=== PATIENT | male | born 2000 ===

== ENCOUNTER 2021-03-18 12:13 | Emergency (ER) | payer MEDICAID, OTHER ==
[~2021-03-18] VITALS: Ht 180.3 cm; Wt 72.6 kg
[2021-03-18] MEDS ORDERED: ONDANSETRON ODT 4 MG TAB PO ONE (14:30)
[2021-03-18] MEDS ORDERED: ACETAMINOPHEN/CODEINE#3 (300/30mg) TAB PO ONE (14:30)
[2021-03-18 16:19] VITALS: BP 138/80
== END 2021-03-18 16:20 | disposition home or self-care (01) ==
LOC: ER 12:13
DX: S82.431A Displaced oblique fracture of shaft of right fibula, initial encounter for closed fracture (principal); S80.211A Abrasion, right knee, initial encounter; M54.2 Cervicalgia; R51.9 Headache, unspecified; R94.31 Abnormal electrocardiogram [ECG] [EKG]; W18.39XA Other fall on same level, initial encounter; Y93.89 Activity, other specified; Y92.89 Other specified places as the place of occurrence of the external cause; Y99.8 Other external cause status
CPT/HCPCS: 29515; 70450; 72125; 73560; 73610; 93005; 99285; Q0162